=== PATIENT | male | born 1990 | race American Indian/Alaskan Native ===

== ENCOUNTER 2021-07-27 19:32 | Emergency (ER) | payer SELFPAY ==
--- NOTE | 2021-07-28 01:16 | Emergency Department Report ---
Eye Injury/Foreign Body - HPI Duration: 3 weeks Eye Location: Left Severity: Moderate Tetanus Status: Up to Date Eye Symptoms: Eye Redness: Yes Other History: 30-year-old male presents emerged from complaining of left redness which is initially associated with pain and does axetil have occasional blurry vision. This initially occurred when he was out with his brother and his son's's all day setting up bounce houses he noticed his began to feel red and irritated and had minor trouble focusing. The following day he decided stay in the house out of the sun for the next 2 days and symptom spontaneously resolved. When he reemerged helping his brother following his wrist. The symptoms once again had returned. He reports no known foreign body flying into his eye but states that he did sanitize several bounce houses and used the machine to blow off in the debris. Reports no fever, chills, sweats. No chest pain no palpitations no nausea vomiting ED Review of Systems ROS: Stated complaint: LEFT EYE PN/LIGHT SENSITIVITY Other details as noted in HPI Comment: All other systems reviewed and negative ED Past Medical Hx - Medications Home Medications: Home Medications Medication Instructions Recorded Confirmed Last Taken Type Olopatadine HCl [Pataday 0.2%] 1 drop OP QDAY #1 bottle 07/28/21 Unknown Rx Tobramycin 0.3% [Tobrex] 1 drop OS Q8HR #1 bottle 07/28/21 Unknown Rx Eye Injury Exam - Exam General: Vital signs noted. No distress. Alert and acting appropriately. ED Course Vital Signs 07/27/21 21:04 Temperature 98.3 F Pulse Rate 59 L Respiratory 18 Rate Blood Pressure 124/75 O2 Sat by Pulse 98 Oximetry Critical care attestation.: If time is entered above; I have spent that time in minutes in the direct care of this critically ill patient, excluding procedure time. ED Disposition Clinical Impression: Eye pain, Red eye Disposition: 01 HOME / SELF CARE / HOMELESS Is pt being admited?: No Does the pt Need Aspirin: No Condition: Stable Instructions: Uveitis, [id number], Pain Without a Known Cause Additional Instructions: You have been seen and evaluated in the emergency department for red eye. At this present time there is minimal pain but you do have blurry vision and discharge upon waking. Be sure to fill your prescriptions and take them as prescribed. It is imperative that you follow-up with cmm operator as we discussed as you may uveitis and require more involved treatment Prescriptions: Olopatadine HCl [Pataday 0.2%] 1 drop OP QDAY #1 bottle Tobramycin 0.3% [Tobrex] 1 drop OS Q8HR #1 bottle Referrals: [facility] [Provider Group] - 3-5 Days ED Eye Prob EXAM - General General appearance: alert, in no apparent distress Limitations: No Limitations Head exam: Positive: atraumatic Pupils: Regular, Round: Bilateral, Reactive: Bilateral Sclera: Injection: Left Extraocular Movement: Normal, Other (No fluorescein uptake appreciated no foreign bodies visualized. Conjunctiva is injected) ENT exam: Positive: normal exam Neck exam: Positive: normal inspection Respiratory exam: Positive: normal lung sounds bilaterally, respiratory distress Back exam: denies: CVA tenderness (R), CVA tenderness (L) Neurological exam: Positive: CN II-XII intact Psychiatric exam: Positive: normal affect
[2021-07-28 02:02] VITALS: BP 127/78
== END 2021-07-28 01:47 | disposition home or self-care (01) ==
LOC: ED 19:32
DX: H57.12 Ocular pain, left eye (principal)
CPT/HCPCS: 99282